=== PATIENT | male | born 1945 | race Caucasian/White ===

== ENCOUNTER 2018-01-22 05:40 | Outpatient (CLI) | payer MEDICARE, OTHER ==
[~2018-01-22] VITALS: Ht 185.4 cm; Wt 104.3 kg
[2018-01-22] MEDS ORDERED: ALLO300T2 PO (09:31)
[2018-01-22] MEDS ORDERED: MELO15TA39 PO (09:31)
[2018-01-22] MEDS ORDERED: RIVA20TA PO (09:31)
[2018-01-22] MEDS ORDERED: OLME1TAB24 PO (09:31)
[2018-01-22] MEDS ORDERED: ATOR40TA PO (09:31)
[2018-01-22] MEDS ORDERED: DIPH25CA79 PO (09:31)
[2018-01-22] MEDS ORDERED: DILT240C86 PO (09:31)
[2018-01-22] MEDS ORDERED: RABE20TA27 PO (09:40)
== END 2018-01-22 09:42 | disposition home or self-care (01) ==
LOC: PREOP 05:40
PROVIDERS: ATTEND Surgery
DX: Z01.818 Encounter for other preprocedural examination (principal)

== ENCOUNTER 2018-01-29 08:56 | Day surgery (SDC) | payer MEDICARE, OTHER ==
[~2018-01-29] VITALS: Ht 185.4 cm; Wt 104.3 kg
[~2018-01-29 08:56] MED LIST: ALLO300T2 PO; ATOR40TA PO; DILT240C86 PO; DIPH25CA79 PO; MELO15TA39 PO; OLME1TAB24 PO; RABE20TA27 PO; RIVA20TA PO
[2018-01-29] MEDS ORDERED: LACTATED RINGERS 1,000 ML IV STA (09:13)
[2018-01-29] MEDS ORDERED: LACTATED RINGERS 1,000 ML IV ONE (09:16)
[2018-01-29] MEDS ORDERED: PROPOFOL INJECTION 50 ML IV ONE (09:26)
[2018-01-29 09:51] VITALS: BP 149/88
--- NOTE | 2018-01-29 10:09 | Progress Note-Pre Operative ---
Pre-Operative Progress Note H&P Reviewed The H&P was reviewed, patient examined and no changes noted. Time Seen by Provider: 10:01 Date H&P Reviewed: Jan 29, 2018 Time H&P Reviewed: 10:03 Pre-Operative Diagnosis: surveillance colonoscopy DEBRA MONTEJO DO Jan 29, 2018 10:09
--- NOTE | 2018-01-29 11:00 | Progress Note-Post Operative ---
Post-Operative Progess Note Surgeon (s)/Hospital Chaplain (s) Surgeon DEBRA MONTEJO DO Hospital Chaplain: JUAN [address]AB[address] Pre-Operative Diagnosis surveillance colonoscopy Post-Operative Diagnosis Cecal Polyp Internal Hemorrhoids Procedure & Operative Findings Date of Procedure 01/29/18 Procedure Performed/Findings Colon with hot bx Anesthesia Type IV sedation by DIVIDING MACHINE OPERATOR Estimated Blood Loss Estimated blood loss (mL): scant Specimens/Packing Specimens Removed cecal polyp DEBRA MONTEJO DO Jan 29, 2018 11:00
--- NOTE | 2018-01-29 11:01 | Endoscopy Discharge Instruct ---
Endo Procedure/Findings Findings 1.: Polyp 2.: Internal Hemorrhoids Discharge Instructions - Activity: You might feel a little sleepy until tomorrow. This is due to the medicine you received to relax you. Until tomorrow, you should: NOT drive a car, operate machinery or power tools. NOT drink any alcoholic beverages. NOT make any important decisions or sign importortant papers. Do not return to work until tomorrow, unless otherwise instructed. Resume previous activities tomorrow. Diet: Start by taking liquids. If you tolerate liquids, advance to solid food. Make an appointment for one week. Notify Physician - If you experience excessive bleeding, unusual abdominal pain, fever, or chest pain, contact your doctor immediately. Follow-Up: - I have received and understand the above instructions and will call my doctor if I have any further questions. Patient Signature Date Nurse Signature Other (Relationship) DEBRA MONTEJO DO Jan 29, 2018 11:01
[2018-01-29 11:10] VITALS: BP 121/83
[2018-01-29 11:39] VITALS: BP 142/99
[2018-01-29 11:44] VITALS: BP 142/99
--- NOTE | 2018-01-29 13:14 | Anesthesia-General Post-Op ---
MAC Patient Condition Mental Status/LOC: Same as Preop Cardiovascular: Satisfactory Nausea/Vomiting: Absent Respiratory: Satisfactory Pain: Controlled Complications: Absent Post Op Complications Complications None Follow Up Care/Instructions Patient Instructions None needed. Anesthesiology Discharge Order Discharge Order Patient is doing well, no complaints, stable vital signs, no apparent adverse anesthesia problems. No complications reported per nursing. NYA ASHFORD CRNA Jan 29, 2018 13:14
--- NOTE | 2018-01-29 20:10 | OPERATIVE REPORT ---
DATE OF SERVICE: 01/29/2018 PREOPERATIVE DIAGNOSIS: Surveillance colonoscopy. POSTOPERATIVE DIAGNOSES: 1. Cecal polyp. 2. Internal hemorrhoids. PROCEDURE: Colonoscopy with hot biopsy. SURGEON: Shiva Shah DO. GARMENT PATTERNMAKER: Ramses Spence MS3 SPECIMEN: Cecal polyp. BLOOD LOSS: Scant. FLUIDS: Per anesthesia. POSTOPERATIVE CONDITION: Stable. INDICATION FOR PROCEDURE: The patient is a 72-year-old male who had a history of a sessile serrated adenoma, needed a workup, surveillance colonoscopy. FINDINGS: The patient had one small polyp in the cecum, very flat. He had some internal hemorrhoids, but no other obvious pathology. PROCEDURE NOTE: After informed consent was obtained, the patient was brought to the endoscopy suite and placed in bed in the left lateral decubitus position. He was administered IV sedation by the RAG INSPECTOR who then monitored his vitals the entire time, heart rate, blood pressure and pulse ox and the scope was inserted, pushed all the way to 150 cm, able to get to the cecum, took the pictures of appendiceal orifice, ileocecal valve, and then just outside the ileocecal valve, saw a flat polyp, did a hot biopsy of this, sent this to pathology and then slowly withdrew the scope insufflating to look circumferentially at the fields, looking at the cecum. There was lot of retained fecal material. I was able to suction almost all of it out. Continued up the ascending colon to the hepatic flexure, then down the transverse colon, the splenic flexure, into the descending colon and finally down to the sigmoid into the rectum. Retroflexed in the rectal vault, saw some internal hemorrhoids, took a picture of this and then removed the scope. The patient tolerated the procedure and he was recovered in the endoscopy suite. Job ID: [id number] DocumentID: [id number] Dictated Date: 01/29/2018 10:58:04 [place] Date: 01/29/2018 19:08:58 Dictated By: SHIVA SHAH DO
== END 2018-01-29 11:48 | disposition home or self-care (01) ==
LOC: ENDO 08:56
PROVIDERS: ATTEND Surgery
DX: Z12.11 Encounter for screening for malignant neoplasm of colon (principal); K63.5 Polyp of colon; K64.8 Other hemorrhoids; I48.2 Chronic atrial fibrillation; I11.9 Hypertensive heart disease without heart failure; R79.1 Abnormal coagulation profile; E78.5 Hyperlipidemia, unspecified; Z87.891 Personal history of nicotine dependence; Z85.46 Personal history of malignant neoplasm of prostate; K21.9 Gastro-esophageal reflux disease without esophagitis; Z79.01 Long term (current) use of anticoagulants; Z79.899 Other long term (current) drug therapy
CPT/HCPCS: 88305

== ENCOUNTER → 2020-12-01 | Outpatient (CLI) | payer MEDICARE, OTHER ==
[~2020-12-01] MED LIST changes: -RABE20TA27 PO; +RABE20TA30 PO; -RIVA20TA PO; +RIVA20TA2 PO
== END ==
LOC: ONC 08:36
PROVIDERS: ATTEND Radiology Radiation Oncology
DX: C61 Malignant neoplasm of prostate (principal); I11.9 Hypertensive heart disease without heart failure
CPT/HCPCS: 84153

== ENCOUNTER → 2021-11-30 | Outpatient (CLI) | payer MEDICARE, OTHER | LOC: ONC 09:15 | PROVIDERS: ATTEND Radiology Radiation Oncology | DX: C61 Malignant neoplasm of prostate (principal) | CPT/HCPCS: 36415; 84153 ==

== ENCOUNTER → 2022-11-30 | Outpatient (CLI) | payer MEDICARE, OTHER ==
[~2022-11-30] MED LIST changes: +OLME-40 PO; -OLME1TAB24 PO
== END ==
LOC: EDBD 09:10 → ONC 09:10
PROVIDERS: ATTEND Radiology Radiation Oncology
DX: C61 Malignant neoplasm of prostate (principal)
CPT/HCPCS: 36415; 84153